=== PATIENT | female | born 1970 | race African-American/Black ===

== ENCOUNTER 2017-02-01 09:33 | Inpatient (IN) | payer MEDICARE, OTHER ==
--- NOTE | ~2017-02-01 | OP ---
Record Of Operation [facility] [address] [place]. [address] NAME: ALONZO HAMILTON : 66 STATUS : ADM IN PAT#: [id number] AGE: 46 ADM/REG DATE : 02/01/17 MR#: [id number] REPORT SERV DATE: 02/01/17 DICTATED BY: CINDY BURGESS JR. DATE: 02/01/17 REPORT STATUS : Draft TRANSCRIBED BY: MODL DATE: 02/01/17 DATE OF PROCEDURE: 02/01/2017 SURGEON: Cindy Burgess M.D. CUSTOMS APPRAISER: Yariel Smallwood. PROCEDURE: Excision of pilonidal disease with extensive sinus tracts and cyst formation along with partial closure of defect and wound VAC placement. PREOPERATIVE DIAGNOSIS: Pilonidal disease with extensive sinus tracts and cyst formation. POSTOPERATIVE DIAGNOSIS: Pilonidal disease with extensive sinus tracts and cyst formation. ANESTHESIA: General. INDICATIONS: The patient presented with progressive drainage from the pilonidal region. This appears to be sinus is consistent with extensive pilonidal disease, and excision is indicated. FINDINGS: The area was excised completely. The resulting defect measured 13.8 x 5 x 8 x 7. There was a tunnel at 5 o'clock. The tissue was submitted for pathology, and cultures were also taken. Wound VAC was placed. DESCRIPTION OF PROCEDURE: With adequate general anesthesia, the patient was placed in the prone position. The buttock area was prepped and draped sterilely. With a 10 blade incision made around the area of sinus tract, this was deepened down through the subcutaneous tissues. Complete excision of the skin and subcutaneous tissue excised, excision taken down to the underlying fascia. This was then extended to the patient's right side along the area where there was extensive involvement as well. Cultures were taken. The wound was irrigated with pulse lavage casting and pasting supervisor. Hemostasis was assured with electrocautery. Then, the wound was irrigated with pulse lavage. Then, the inferior limb was closed with mattress of 3-0 nylon. Wound VAC was placed with a white foam in the tunnel and black foam in the midportion. Occlusive dressing, and suction . The patient tolerated the procedure well and left the operating room in satisfactory condition. ESTIMATED BLOOD LOSS: 30 mL. DREW/PARRIS Cindy Burgess Jr., M.D. Record Of [address] [address] NAME: ALONZO HAMILTON : 66 STATUS : ADM IN PAT#: [id number] AGE: 46 ADM/REG DATE : 02/01/17 MR#: [id number] REPORT SERV DATE: 02/01/17 DICTATED BY: CINDY BURGESS JR. DATE: 02/01/17 REPORT STATUS : Draft TRANSCRIBED BY: PARRIS DATE: 02/01/17 / [id number] CC: Gabriela Jimenez Jr.
--- NOTE | ~2017-02-01 | DS ---
Discharge Summary [facility] [address] [place]. [address] NAME: ALONZO HAMILTON : 66 STATUS : DIS IN PAT#: [id number] AGE: 46 ADM/REG DATE : 02/02/17 MR#: [id number] REPORT SERV DATE: 02/13/17 DICTATED BY: CINDY BURGESS JR. DATE: 02/12/17 REPORT STATUS : Draft TRANSCRIBED BY: PARRIS DATE: 02/12/17 Data Collection from hospitalization DISCHARGE DIAGNOSES: 1. Pilonidal disease with extensive sinus tract and cyst formation. 2. Multiple sclerosis. 3. Neurogenic bladder. 4. Chronic obstructive pulmonary disease. 5. Former smoker. 6. Situs inversus. 7. Gastroesophageal reflux disease. 8. History of spinal meningitis. CONSULTATION: Dr. Lorenzo Mars. PROCEDURES PERFORMED: 1. Excision of pilonidal disease with extensive sinus tract cyst formation along with partial closure of the defect and wound VAC placement, 02/01/2017. 2. Modified barium swallow study, 02/03/2017. PATHOLOGY: Skin and subcutaneous tissue intergluteal region excision-pilonidal cyst/sinus with areas of marked acute inflammation. DISCHARGE MEDICATIONS: Parafon Forte 500 mg daily, Dantrium 100 mg twice a day, Colace 100 mg daily, Nexium 40 mg twice a day, Pepcid 40 mg at bedtime, ferrous sulfate 325 mg daily, Diflucan 100 mg twice a day, Lasix daily, CellCept 1 g twice a day, Naprosyn 500 mg every 12 hours, Ditropan 5 mg twice a day, Percocet 5/325 one to two tablets every five hours as needed, Klor-Con 10 mEq daily, Pravachol 20 mg at bedtime, Lyrica 225 mg daily, Zantac 300 mg at bedtime, Zoloft 100 mg at bedtime, Bactrim DS one tablet every 12 hours, albuterol twice a day as instructed, budesonide as instructed. CONDITION AT DISCHARGE: Stable. DISPOSITION: The patient was discharged home to be followed by home health care on a mechanical soft diet with activities as instructed. She would follow up at the [facility] [place], 02/11/2017. HOSPITAL COURSE: This is a 46-year-old female, who has pilonidal disease with extensive sinus tract and cyst formation. Treatment options were discussed and it was elected to proceed with surgical intervention. She was admitted to the hospital at this time for further evaluation and treatment. Upon admission, she was taken to the operating room, where she underwent the above-mentioned procedure. She tolerated this well and there were no complications. On postop day 1, wound VAC remained in place. Cultures were negative. A bedside swallow evaluation was performed. There were no overt signs or symptoms of aspiration. Aspiration precautions were in place. The patient was seen by Dr. Lorenzo Mars. The patient became a full admit. CBC and chemistry were within normal limits. H and H remained chronically low at 10.6 and 32.2. Discharge Summary [address] [address] NAME: ALONZO HAMILTON : 66 STATUS : DIS IN PAT#: [id number] AGE: 46 ADM/REG DATE : 02/02/17 MR#: [id number] REPORT SERV DATE: 02/13/17 DICTATED BY: CINDY BURGESS JR. DATE: 02/12/17 REPORT STATUS : Draft TRANSCRIBED BY: PARRIS DATE: 02/12/17 Chest x-ray showed asymmetric alveolar consolidation involving the lower left lung concerning for pneumonia and/or aspiration in the proper clinical setting. There was mild right basilar opacities, potentially mild atelectasis and dextrocardia. The patient has had a chronic cough for months with no overt aspiration noted by speech pathologist. Without any fever, elevated white count, or shortness of breath, it was doubtful that there was anything infectious going on. Modified barium swallow study was going to be performed. Aspiration precautions remained in place. She was encouraged to use incentive spirometry. She was placed on oxygen bronchodilator protocol and we continued her home medications. On the , a modified barium swallow study was performed. The patient did exhibit delayed swallow initiation and mildly reduced range of motion of the oral/pharyngeal muscles. Aspiration precautions remained in place. Over the next couple of days, she continued to progress satisfactorily. The wound VAC remained in place. Discharge planning was performed. Supportive care continued. Benitez catheter was in place. Oxybutynin continued. On 02/05/2017, her coughing had improved. She was afebrile. She was eating well. Discharge instructions were given. Due to her improved and stable condition, she was discharged home to be followed by home health care with the above-stated instructions. Information collected by: Kenia Schuster I submit the above information as my discharge summary. KANDACE/PARRIS Cindy Burgess Jr., M.D. / [id number] CC: Gabriela Jimenez Jr., M.D.
--- NOTE | ~2017-02-01 | CN ---
Consultation Report [facility] [address] [place] [place]. [address] NAME: ALONZO HAMILTON : 66 STATUS : ADM IN PAT#: [id number] AGE: 46 ADM/REG DATE : 02/02/17 MR#: [id number] REPORT SERV DATE: 02/02/17 DICTATED BY: KEM PLASCENCIA DATE: 02/02/17 REPORT STATUS : Draft TRANSCRIBED BY: PARRIS DATE: 02/02/17 CONSULT NOTE DATE OF CONSULTATION: 02/02/2017 PULMONOLOGISTS: Gurdeep Jaquez M.D. CONSULT COMING FROM: Dr. Duckworth. HISTORY OF PRESENT ILLNESS: This is a 46-year-old female, being consulted for aspiration and cough. The patient has a history of MS, neurogenic bladder with chronic suprapubic Benitez for about six years now. She was also diagnosed with COPD and has been following up with both Dr. Hammond and Dr. Jaquez. The patient has been having cough for months, and she was told that she probably has some recurrent aspiration. The patient has a pilonidal cyst with sinus tract formation and finally was admitted by Dr. Duckworth for excision. The patient tolerated the procedure well, and we are now called out to help out with this aspiration and cough. When I saw the patient, the patient was eating without any problems and already had a speech evaluation, which did not show any overt aspiration. The patient did not have any fever, chills, or shortness of breath. She has cough, mainly dry, but sometimes it is productive. She said that she is allergic to a lot of things, maybe some environmental stuff too, but she is not sure which one. She denied any other symptoms. There is no nausea or vomiting. She did not have any urinary changes or bowel changes. No near syncopal or syncopal episode. The. REVIEW OF SYSTEMS: Rest of the 14-point review of system is negative except as above. PAST MEDICAL HISTORY: Includes multiple sclerosis, being seen by Dr. Lund; neurogenic bladder with chronic suprapubic Benitez, the last time it was changed was last Wednesday; COPD; ex-smoker; situs inversus; possible chronic aspiration; questionable history of asthma; GERD. SOCIAL HISTORY: She does not smoke, drink, or use recreational drugs at present. FAMILY HISTORY: Positive for CAD and diabetes. ALLERGIES: INCLUDE FLAGYL, PENICILLIN, LEVAQUIN, GABAPENTIN. MEDICATIONS: Include Parafon, Dantrium, Colace, Nexium, iron, Diflucan, Lasix, CellCept, naproxen, Ditropan, Klor-Con, Pravachol, Lyrica, Zantac, Zoloft. PHYSICAL EXAMINATION: GENERAL: Obese, alert, oriented x3. Not in cardiopulmonary distress. VITAL SIGNS: Include a saturation of 97% on room air, blood pressure of 122/78, temperature Consultation Report [facility] [place] [id number] [place]. [address] NAME: ALONZO HAMILTON : 66 STATUS : ADM IN [facility]#: [id number] AGE: 46 ADM/REG DATE : 02/02/17 MR#: [id number] REPORT SERV DATE: 02/02/17 DICTATED BY: KEM PLASCENCIA DATE: 02/02/17 REPORT STATUS : Draft TRANSCRIBED BY: MODL DATE: 02/02/17 of 99.1, pulse rate of 105, respiration of 18. She has supple neck. No JVD or carotid bruits. No lymphadenopathy. Antimony conjunctivae. Anicteric sclerae. No pharyngeal erythema. She has good air entry. Some rhonchi on the bases. Regular rate and rhythm to tachycardia, but the heart is heard best on the right side of her chest. Positive bowel sounds. Soft, nontender. No masses. Fair pulses. No edema. NEURO: Nonlocalizing. LABORATORY DATA: Reveals chemistry within normal limits. CBC within normal limits. H and H are chronically low at 10.6 and 32.2 right now. Chest x-ray shows asymmetric alveolar consolidation involving the lower left lung concerning for pneumonia and/or aspiration in the proper clinical setting. Mild right basilar opacity, potentially mild atelectasis, dextrocardia. ASSESSMENT: 1. Status post excision of pilonidal disease. 2. Multiple sclerosis. 3. Neurogenic bladder with chronic suprapubic Benitez. 4. Chronic obstructive pulmonary disease. 5. Situs inversus. 6. Cough, rule out aspiration. PLAN: The patient has been having chronic cough for months with no overt aspiration noted by the speech pathologist. Without any fever. Elevated white count. Shortness of breath. I doubt if there is anything infectious going on. I agree with modified barium swallow per Speech. Aspiration precaution. Incentive spirometry. Place her on oxygen bronchodilator protocol and continue her home medications. Thank you for the consult. I will follow the patient with you. Of note, this could also be her reflux disease; however, if the modified barium swallow comes out good, and she continues to be stable, she could be followed up by her telecommunication equipment repairer on an outpatient basis to work this thing up. KARL/PARRIS Kem Plascencia M.D. / [id number] CC: Gabriela Jimenez Jr., M.D.
[~2017-02-01 09:33] MED LIST: ALBUTEROL INH; AMB10 PO; BACDS PO; BUDESONIDE INH; CELLCEPT IV; CELLCEPT5 PO; CHOLESTEROL MED; DANTRIUM100 MG OR; DANTRIUM100 MG PO; DANTRIUM50 MG OR; DITRO5 PO; DSS PO; ELESTAT0.05 % OPH; FERROUS SULF325 M1 PO; FLUCON1 PO; HYDROCORT12 EX; IRON325 MG PO; K-TABS10 MEQ PO; KLOR-CON 1010 MEQ PO; L20 PO; LYRICA225 MG PO; NAP500 PO; NEXIUM20 M1 PO; NEXIUM40 PO; PARAFON FORTE500 MG OR; PARAFON FORTE500 MG PO; PCET PO; PRAVAC PO; RANITIDINE300 MG PO; REG PO; RITUXAN; SOMATAB PO; VALTREX5 PO; ZANAFLEX2 MG PO; ZOL100 PO
[2017-02-01 10:27] LABS: BASOPHILS 0.2 %; BASOPHILS ABSOLUTE 0.02 10/3/uL (0.0-0.16); EOSINOPHILS ABSOLUTE 0.08 10/3/uL (0.0-0.53); HEMATOCRIT 35.9 % (36.0-48.0); HEMOGLOBIN 11.8 g/dL (12.0-16.0); IMMATURE GRANULOCYTES 0.7 %; IMMATURE GRANULOCYTES ABSOLUTE 0.06 10/3/uL (0.0-0.11); LYMPHOCYTES 15.1 %; LYMPHOCYTES ABSOLUTE 1.24 10/3/uL (0.67-4.30); MEAN CORPUS HGB CONC 32.9 g/dL (32.0-36.0); MEAN CORPUSCULAR HEMOGLOB 28.5 pg (26.0-34.0); MEAN CORPUSCULAR VOLUME 86.7 fL (80-100); MEAN PLATELET VOLUME 10.7 fL (9.2-13.0); MONOCYTES 5.5 %; MONOCYTES ABSOLUTE 0.45 10/3/uL (0.21-1.20); NEUTROPHILS 77.5 %; NEUTROPHILS ABSOLUTE 6.35 10/3/uL (2.02-8.40); PLATELET COUNT 225 10/3/uL (150-400); RBC DISTRIBUTION WIDTH 15.4 % (12.0-16.0); RED CELL COUNT 4.14 10/6/uL (4.0-5.6); WHITE BLOOD CELLS 8.2 10/3/uL (4.5-10.5)
[2017-02-01 10:40] LABS: BUN (BLOOD UREA NITROGEN) 7 MG/DL (6-23); CHLORIDE, SERUM 101 MMOL/L (96-112); CO2 (CARBON DIOXIDE) 27 MMOL/L (24-34); CREATININE 0.54 MG/DL (0.55-1.02); GFR AFRICAN AMERICAN 129 ML/MIN (>=60); GFR NON AFRICAN AMERICAN 112 ML/MIN (>=60); GLUCOSE, SERUM 96 MG/DL (60-99); POTASSIUM, SERUM 3.9 MMOL/L (3.5-5.3); SODIUM, SERUM 140 MMOL/L (135-148)
[2017-02-02 05:39] LABS: BASOPHILS 0.1 %; BASOPHILS ABSOLUTE 0.01 10/3/uL (0.0-0.16); EOSINOPHILS 0.4 %; EOSINOPHILS ABSOLUTE 0.04 10/3/uL (0.0-0.53); HEMATOCRIT 32.2 % (36.0-48.0); HEMOGLOBIN 10.6 g/dL (12.0-16.0); IMMATURE GRANULOCYTES 0.6 %; IMMATURE GRANULOCYTES ABSOLUTE 0.05 10/3/uL (0.0-0.11); LYMPHOCYTES 9.9 %; LYMPHOCYTES ABSOLUTE 0.89 10/3/uL (0.67-4.30); MEAN CORPUS HGB CONC 32.9 g/dL (32.0-36.0); MEAN CORPUSCULAR HEMOGLOB 28.4 pg (26.0-34.0); MEAN CORPUSCULAR VOLUME 86.3 fL (80-100); MEAN PLATELET VOLUME 10.6 fL (9.2-13.0); MONOCYTES 4.3 %; MONOCYTES ABSOLUTE 0.39 10/3/uL (0.21-1.20); NEUTROPHILS 84.7 %; NEUTROPHILS ABSOLUTE 7.61 10/3/uL (2.02-8.40); PLATELET COUNT 216 10/3/uL (150-400); RBC DISTRIBUTION WIDTH 15.2 % (12.0-16.0); RED CELL COUNT 3.73 10/6/uL (4.0-5.6)
[2017-02-02 05:40] LABS: MANUAL DIFF NO %
[2017-02-02 05:57] LABS: A/G RATIO 0.9 (0.7-1.9); ALBUMIN 2.9 G/DL (3.5-5.0); BUN (BLOOD UREA NITROGEN) 5 MG/DL (6-23); CALCIUM, SERUM 8.7 MG/DL (8.5-10.4); CHLORIDE, SERUM 103 MMOL/L (96-112); CO2 (CARBON DIOXIDE) 25 MMOL/L (24-34); CREATININE 0.59 MG/DL (0.55-1.02); GFR AFRICAN AMERICAN 126 ML/MIN (>=60); GFR NON AFRICAN AMERICAN 108 ML/MIN (>=60); GLOBULIN 3.4 G/DL (2.5-4.1); GLUCOSE, SERUM 106 MG/DL (60-99); POTASSIUM, SERUM 3.5 MMOL/L (3.5-5.3); PREALBUMIN 20.8 MG/DL (17.0-43.0); SGOT(AST) 10 U/L (5-40); SGPT(ALT) 12 U/L (5-65); SODIUM, SERUM 139 MMOL/L (135-148); TOTAL BILIRUBIN 0.3 MG/DL (0-1.2); TOTAL PROTEIN 6.3 G/DL (6.0-8.5)
[2017-02-02 06:03] LABS: ALKALINE PHOSPHATASE 66 U/L (45-117)
[2017-02-03 05:59] LABS: BASOPHILS 0.2 %; BASOPHILS ABSOLUTE 0.01 10/3/uL (0.0-0.16); EOSINOPHILS 1.3 %; EOSINOPHILS ABSOLUTE 0.08 10/3/uL (0.0-0.53); HEMATOCRIT 32.8 % (36.0-48.0); HEMOGLOBIN 10.4 g/dL (12.0-16.0); IMMATURE GRANULOCYTES 1.3 %; IMMATURE GRANULOCYTES ABSOLUTE 0.08 10/3/uL (0.0-0.11); LYMPHOCYTES 15.1 %; LYMPHOCYTES ABSOLUTE 0.95 10/3/uL (0.67-4.30); MEAN CORPUS HGB CONC 31.7 g/dL (32.0-36.0); MEAN CORPUSCULAR HEMOGLOB 27.4 pg (26.0-34.0); MEAN CORPUSCULAR VOLUME 86.3 fL (80-100); MEAN PLATELET VOLUME 10.4 fL (9.2-13.0); MONOCYTES 7.3 %; MONOCYTES ABSOLUTE 0.46 10/3/uL (0.21-1.20); NEUTROPHILS 74.8 %; NEUTROPHILS ABSOLUTE 4.73 10/3/uL (2.02-8.40); PLATELET COUNT 202 10/3/uL (150-400); RBC DISTRIBUTION WIDTH 15.5 % (12.0-16.0); WHITE BLOOD CELLS 6.3 10/3/uL (4.5-10.5)
[2017-02-03 06:03] LABS: MANUAL DIFF NO %
[2017-02-03 06:19] LABS: BUN (BLOOD UREA NITROGEN) 4 MG/DL (6-23); CHLORIDE, SERUM 107 MMOL/L (96-112); CO2 (CARBON DIOXIDE) 25 MMOL/L (24-34); CREATININE 0.54 MG/DL (0.55-1.02); GFR AFRICAN AMERICAN 129 ML/MIN (>=60); GFR NON AFRICAN AMERICAN 112 ML/MIN (>=60); GLUCOSE, SERUM 116 MG/DL (60-99); SODIUM, SERUM 141 MMOL/L (135-148)
[2017-02-05] MEDS ORDERED: PEP20 PO (10:58)
[2017-02-05] MEDS ORDERED: BACTRIM DS1 TAB PO (10:59)
[2017-02-05] MEDS ORDERED: PCET PO (10:59)
[2017-06-29] MEDS ORDERED: OXYCON20 PO (13:36)
[2017-06-29] MEDS ORDERED: MIRALAX POWDER1 PKT PO (13:37)
[2017-06-29] MEDS ORDERED: DITRO5 PO (13:38)
[2017-06-29] MEDS ORDERED: METHOC500B PO (13:39)
[2017-06-29] MEDS ORDERED: LYRICA225 MG PO (13:41)
[2017-06-29] MEDS ORDERED: LIPITOR10 PO (13:44)
[2017-06-29] MEDS ORDERED: MULTIVITAMI1 PO (13:47)
[2017-06-29] MEDS ORDERED: MELATONIN5 M1 PO (13:49)
[2017-06-29] MEDS ORDERED: ZYRTEC ALLGY10 MG PO (13:50)
[2017-06-29] MEDS ORDERED: BIST PO (13:53)
[2017-06-29] MEDS ORDERED: PERCOCET 10/3251 TAB PO (13:55)
[2017-06-29] MEDS ORDERED: PROSTAT AWC PO (14:36)
== END 2017-02-05 19:35 | disposition home health service (06) | DRG 571 ==
LOC: SDC 09:33 → 5SO 19:57
PROVIDERS: Specialist
PROC: 0JB90ZZ Excision of Buttock Subcutaneous Tissue and Fascia, Open Approach (ICD-10-PCS; principal; 2017-02-01 13:00)
DX: L05.01 Pilonidal cyst with abscess (principal); Q89.3 Situs inversus; G35 Multiple sclerosis; N31.8 Other neuromuscular dysfunction of bladder; Z87.01 Personal history of pneumonia (recurrent); K21.9 Gastro-esophageal reflux disease without esophagitis; G89.4 Chronic pain syndrome; J44.9 Chronic obstructive pulmonary disease, unspecified; M19.90 Unspecified osteoarthritis, unspecified site; D50.9 Iron deficiency anemia, unspecified; R05 Cough; Z82.49 Family history of ischemic heart disease and other diseases of the circulatory system; Z82.3 Family history of stroke; Z90.49 Acquired absence of other specified parts of digestive tract; Z98.890 Other specified postprocedural states; Z88.0 Allergy status to penicillin; Z88.1 Allergy status to other antibiotic agents; Z79.899 Other long term (current) drug therapy; Z87.891 Personal history of nicotine dependence; Z86.711 Personal history of pulmonary embolism; Z83.3 Family history of diabetes mellitus; B96.4 Proteus (mirabilis) (morganii) as the cause of diseases classified elsewhere; B95.62 Methicillin resistant Staphylococcus aureus infection as the cause of diseases classified elsewhere
CPT/HCPCS: 71010; 74230; 80048; 80053; 83735; 84134; 85025; 87015; 87070; 87075; 87077; 87102; 87116; 87186; 87205; 88304; 92610-GN; 92611-GN; 93005; 94640; 94660; A9270-GY; G8996-CI-GN; G8996-CJ-GN; G8997-CI-GN; G8997-CJ-GN; G8998-CI-GN; G8998-CJ-GN; J0690; J2710; J3010

== ENCOUNTER 2017-03-20 04:52 | Emergency (ER) | payer MEDICARE, OTHER ==
[2017-03-20 02:44] LABS: BASOPHILS 0.2 %; BASOPHILS ABSOLUTE 0.01 10/3/uL (0.0-0.16); EOSINOPHILS ABSOLUTE 0.13 10/3/uL (0.0-0.53); ER CBC TAT 0 Hrs 05 Mins; HEMATOCRIT 31.4 % (36.0-48.0); HEMOGLOBIN 9.9 g/dL (12.0-16.0); IMMATURE GRANULOCYTES 0.6 %; IMMATURE GRANULOCYTES ABSOLUTE 0.04 10/3/uL (0.0-0.11); LYMPHOCYTES 14.2 %; LYMPHOCYTES ABSOLUTE 0.93 10/3/uL (0.67-4.30); MANUAL DIFF NO %; MEAN CORPUS HGB CONC 31.5 g/dL (32.0-36.0); MEAN CORPUSCULAR HEMOGLOB 26.5 pg (26.0-34.0); MEAN CORPUSCULAR VOLUME 84.2 fL (80-100); MONOCYTES 6.1 %; NEUTROPHILS 76.9 %; NEUTROPHILS ABSOLUTE 5.03 10/3/uL (2.02-8.40); PLATELET COUNT 229 10/3/uL (150-400); RBC DISTRIBUTION WIDTH 15.7 % (12.0-16.0); RED CELL COUNT 3.73 10/6/uL (4.0-5.6); WHITE BLOOD CELLS 6.5 10/3/uL (4.5-10.5)
[2017-03-20 02:56] LABS: CALCIUM, SERUM 9.4 MG/DL (8.5-10.4); CHLORIDE, SERUM 102 MMOL/L (96-112); CO2 (CARBON DIOXIDE) 29 MMOL/L (24-34); CREATININE 0.49 MG/DL (0.55-1.02); GFR AFRICAN AMERICAN 134 ML/MIN (>=60); GFR NON AFRICAN AMERICAN 115 ML/MIN (>=60); POTASSIUM, SERUM 3.5 MMOL/L (3.5-5.3); SODIUM, SERUM 141 MMOL/L (135-148)
[2017-03-20 02:57] LABS: BUN (BLOOD UREA NITROGEN) 6 MG/DL (6-23); GLUCOSE, SERUM 107 MG/DL (60-99)
[2017-03-20 03:27] LABS: ASCORBIC ACID (UR NOT ORDER) NEG (NEG); BILIRUBIN, URINE NEGATIVE (NEG); ER URINALYSIS TAT 0 Hrs 00 Mins; KETONE, URINE NEGATIVE (NEG); LEUKOCYTE ESTERASE(NOT OR LARGE (NEG); WBC (NOT ORDERED) (RFLEX) 66 (0-5)
[2017-03-20 03:29] LABS: NITRITE (URINE) NEG (NEG)
[~2017-03-20 04:52] MED LIST changes: +BACTRIM DS1 TAB PO; +PEP20 PO
[2017-06-29] MEDS ORDERED: OXYCON20 PO (13:36)
[2017-06-29] MEDS ORDERED: MIRALAX POWDER1 PKT PO (13:37)
[2017-06-29] MEDS ORDERED: DITRO5 PO (13:38)
[2017-06-29] MEDS ORDERED: METHOC500B PO (13:39)
[2017-06-29] MEDS ORDERED: LYRICA225 MG PO (13:41)
[2017-06-29] MEDS ORDERED: LIPITOR10 PO (13:44)
[2017-06-29] MEDS ORDERED: MULTIVITAMI1 PO (13:47)
[2017-06-29] MEDS ORDERED: MELATONIN5 M1 PO (13:49)
[2017-06-29] MEDS ORDERED: ZYRTEC ALLGY10 MG PO (13:50)
[2017-06-29] MEDS ORDERED: BIST PO (13:53)
[2017-06-29] MEDS ORDERED: PERCOCET 10/3251 TAB PO (13:55)
[2017-06-29] MEDS ORDERED: PROSTAT AWC PO (14:36)
== END 2017-03-20 05:38 | disposition home or self-care (01) ==
LOC: ER 04:52
PROVIDERS: Specialist
DX: N39.0 Urinary tract infection, site not specified (principal); G35 Multiple sclerosis; J44.9 Chronic obstructive pulmonary disease, unspecified; K21.9 Gastro-esophageal reflux disease without esophagitis; Z93.59 Other cystostomy status; Z87.891 Personal history of nicotine dependence; Z90.710 Acquired absence of both cervix and uterus; Z88.0 Allergy status to penicillin; Z88.1 Allergy status to other antibiotic agents; Z88.8 Allergy status to other drugs, medicaments and biological substances; Z79.899 Other long term (current) drug therapy
CPT/HCPCS: 80048; 81001; 85025; 87077; 87086; 87186; 96372; 99284; J0692

== ENCOUNTER 2017-04-05 16:33 | Inpatient (IN) | payer MEDICARE, OTHER ==
--- NOTE | ~2017-04-05 | IDS ---
Interim Discharge Summary [facility] [address] [place]. [address] NAME: ALONZO HAMILTON : 66 STATUS : ADM IN PAT#: [id number] AGE: 47 ADM/REG DATE : 04/05/17 MR#: [id number] REPORT SERV DATE: 04/12/17 DICTATED BY: CHAN RUIZ DATE: 04/12/17 REPORT STATUS : Draft TRANSCRIBED BY: MODIsabella DATE: 04/12/17 ADMISSION DATE: 04/05/2017 DISCHARGE DATE: REASON FOR ADMISSION: Pain and wound, concern for osteomyelitis. HISTORY OF PRESENT ILLNESS: Please refer to Dr. Sanders's history and physical dated 04/05 for complete details regarding the patient's admission. In brief, the patient was admitted to the Hospitalist Service for concern for urinary tract infection and wound infection. HOSPITAL COURSE: Several issues were addressed. The patient is a well-known patient of Dr. Duckworth who has been treating her pilonidal cyst. 1. Sacral osteomyelitis. The patient is well known to Dr. Duckworth. She presented with a sacral ulcer that was concerning for osteomyelitis. Dr. Duckworth was consulted. He performed a bedside debridement on 04/08/2017. Cultures came back as positive for Proteus and Strep bovis. Infectious Disease was consulted. Dr. Luna had recommended at that time continuing Azactam, that was prior to known culture results. Dr. Luna continues to follow the patient, and we are awaiting final recommendations for antibiotics. 2. NMO, not multiple sclerosis, with flare. The patient follows closely with Dr. Lund. The patient states that she has multiple sclerosis, but she actually has NMO. This was verified by Dr. Lund. She noted that she had been becoming weaker prior to admission. Neurology was consulted. Recommended doing three days of IV Solu-Medrol, which she has completed, to help with her flare of NMO. Neurology recommended getting an MRI, which did not show any acute process. 3. Neurogenic bladder with a closing suprapubic hole. The patient is closely followed by Dr. Shahid. Dr. Shahid is waiting for her suprapubic hole to close up on its own, and the patient had a Benitez catheter, it had had leaked, and was replaced. She continues to need a chronic Benitez. 4. 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 There was concern about a urinary tract infection. Urine culture was obtained, which showed Pseudomonas was likely colonization and she has had previous cultures. Dr. Luna did not feel that she had an active infection, and therefore, her antibiotics were changed. 5. Acute blood loss anemia. She started developing some decreasing hemoglobins, likely secondary to her osteomyelitis. She did not receive any blood transfusions. Her hemoglobin has been stable. 6. Situs inversus. 7. Morbid obesity. 8. Blindness. DISPOSITION: The patient will likely need to be placed in rehab facility according to Physical Therapy. We are awaiting final recommendations from Dr. Luna regarding whether or not the patient will need IV antibiotics or can be discharged with oral antibiotics. Hopefully, the decision will be made today on 04/12/2017, with likely placement in rehab for this patient. Interim Discharge Summary [address] [address] NAME: ALONZO HAMILTON : 66 STATUS : ADM IN [facility]#: [id number] AGE: 47 ADM/REG DATE : 04/05/17 MR#: [id number] REPORT SERV DATE: 04/12/17 DICTATED BY: CHAN RUIZ DATE: 04/12/17 REPORT STATUS : Draft TRANSCRIBED BY: PARRIS DATE: 04/12/17 INTERIM DIAGNOSES: 1. 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 Duckworth. 2. Neuromyelitis optica with flare, not muscular sclerosis as the patient keeps reporting. 3. Neurogenic bladder with closing suprapubic hole with a chronic Benitez catheter. 4. Acute blood loss anemia not requiring any transfusions. 5. Situs inversus. 6. Morbid obesity. PROCEDURES: Include consultation with Dr. Duckworth, Dr. Luna, bedside debridement, Neurology consult, MRI of the brain, MRI of the pelvis, MRI of the cervical spine, chest x-ray, swallow evaluation. Final decision per Dr. Larson who will assume care of this patient on 04/13/2017. KASHIF/PARRIS Chan Ruiz MD / [id number] CC: MD Jeff Hector MD
--- NOTE | ~2017-04-05 | DS ---
Discharge Summary [facility] [address] [place]. [address] NAME: ALONZO HAMILTON : 66 STATUS : DIS IN PAT#: [id number] AGE: 47 ADM/REG DATE : 04/05/17 MR#: [id number] REPORT SERV DATE: 04/13/17 DICTATED BY: CHAN RUIZ DATE: 04/12/17 REPORT STATUS : Draft TRANSCRIBED BY: MODL DATE: 04/12/17 ADMISSION DATE: 04/05/2017 DISCHARGE DATE: 04/12/2017 REASON FOR ADMISSION: Pain and wound, concern for osteomyelitis. HISTORY OF PRESENT ILLNESS: Please refer to Dr. Sanders's history and physical dated 04/05 for complete details regarding the patient's admission. In brief, the patient was admitted to the Hospitalist Service for concern for urinary tract infection and wound infection. HOSPITAL COURSE: Several issues were addressed. The patient is a well-known patient of Dr. Duckworth who has been treating her pilonidal cyst. 1. Sacral osteomyelitis. The patient is well known to Dr. Duckworth. She presented with a sacral ulcer that was concerning for osteomyelitis. Dr. Duckworth was consulted. He performed a bedside debridement on 04/08/2017. Cultures came back as positive for Proteus and Strep bovis. Infectious Disease was consulted. Dr. Luna had recommended at that time continuing Azactam, that was prior to known culture results. Dr. Luna continues to follow the patient, and we are awaiting final recommendations for antibiotics. 2. NMO, not multiple sclerosis, with flare. The patient follows closely with Dr. Lund. The patient states that she has multiple sclerosis, but she actually has NMO. This was verified by Dr. Lund. She noted that she had been becoming weaker prior to admission. Neurology was consulted. Recommended doing three days of IV Solu-Medrol, which she has completed, to help with her flare of NMO. Neurology recommended getting an MRI, which did not show any acute process. 3. Neurogenic bladder with a closing suprapubic hole. The patient is closely followed by Dr. Shahid. Dr. Shahid is waiting for her suprapubic hole to close up on its own, and the patient had a Benitez catheter, it had had leaked, and was replaced. She continues to need a chronic Benitez. 4. 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 There was concern about a urinary tract infection. Urine culture was obtained, which showed Pseudomonas was likely colonization and she has had previous cultures. Dr. Luna did not feel that she had an active infection, and therefore, her antibiotics were changed. 5. Acute blood loss anemia. She started developing some decreasing hemoglobins, likely secondary to her osteomyelitis. She did not receive any blood transfusions. Her hemoglobin has been stable. 6. Situs inversus. 7. Morbid obesity. 8. Blindness. DISPOSITION: The patient will likely need to be placed in rehab facility according to Physical Therapy. We are awaiting final recommendations from Dr. Luna regarding whether or not the patient will need IV antibiotics or can be discharged with oral antibiotics. Hopefully, the decision will be made today on 04/12/2017, with likely placement in rehab for this patient. Discharge Summary [place] [id number] [facility]. [address] NAME: ALONZO HAMILTON : 66 STATUS : DIS IN PAT#: [id number] AGE: 47 ADM/REG DATE : 04/05/17 MR#: [id number] REPORT SERV DATE: 04/13/17 DICTATED BY: CHAN RUIZ DATE: 04/12/17 REPORT STATUS : Draft TRANSCRIBED BY: PARRIS DATE: 04/12/17 INTERIM DIAGNOSES: 1. 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 Duckworth. 2. Neuromyelitis optica with flare, not muscular sclerosis as the patient keeps reporting. 3. Neurogenic bladder with closing suprapubic hole with a chronic Benitez catheter. 4. Acute blood loss anemia not requiring any transfusions. 5. Situs inversus. 6. Morbid obesity. PROCEDURES: Include consultation with Dr. Duckworth, Dr. Luna, bedside debridement, Neurology consult, MRI of the brain, MRI of the pelvis, MRI of the cervical spine, chest x-ray, swallow evaluation. Final decision per Dr. Larson who will assume care of this patient on 04/13/2017. ADDENDUM: The patient may likely be discharged to [facility] today for IV antibiotics and rehab and wound care. DISCHARGE MEDICATIONS: Include Parafon 500 mg twice a day, dantrolene 100 mg twice a day, Colace 100 mg twice a day, vitamin D 50,000 units every , iron sulfate 325 mg three times a day, Lasix 20 mg daily, CellCept 1000 mg twice a day, Ditropan 5 mg twice a day, Protonix 40 mg daily, pravastatin 20 mg at bedtime, Lyrica 225 mg twice a day, Lyrica 50 mg twice a day, Zoloft 100 mg daily, Valtrex 500 mg once a day, Percocet p.r.n. pain, Claritin, ranitidine, Ambien 10 mg as needed for bedtime, Klor-Con 10 mEq once a day, and possibly Infectious Disease to address any IV antibiotics. The patient may be discharged to [facility] for IV antibiotics and wound care. PROCEDURES: Include consultation with Dr. Duckworth and Dr. Luna, bedside debridement, consultation with Neurology, MRIs. This is Dr. Chan Ruiz spending our spending over 30 minutes discharge planning and coordination of care on Ms. Hamilton. DICTATED BY: MD KASHIF Hector/PARRIS Chan uRiz MD / [id number] CC: Chan Ruiz MD Discharge Summary [address] [address] NAME: ALONZO HAMILTON : 66 STATUS : DIS IN PAT#: [id number] AGE: 47 ADM/REG DATE : 04/05/17 MR#: [id number] REPORT SERV DATE: 04/13/17 DICTATED BY: CHAN RUIZ DATE: 04/12/17 REPORT STATUS : Draft TRANSCRIBED BY: PARRIS DATE: 04/12/17 Gabriela Ewing Jr., M.D. Woodrow Luna M.D.
--- NOTE | ~2017-04-05 | CN ---
Consultation Report [facility] [address] [place]. [address] NAME: ALONZO HAMILTON : 66 STATUS : ADM IN PAT#: [id number] AGE: 46 ADM/REG DATE : 04/05/17 MR#: [id number] REPORT SERV DATE: 04/06/17 DICTATED BY: WOODROW MEJIA DATE: 04/06/17 REPORT STATUS : Draft TRANSCRIBED BY: MODIsabella DATE: 04/06/17 INFECTIOUS DISEASE CONSULTATION DATE OF CONSULTATION: REASON FOR CONSULT: Fever in a patient with antibiotic allergies. HISTORY OF PRESENT ILLNESS: A 46-year-old black lady with history of multiple sclerosis on treatment with CellCept, blindness, situs inversus, chronic urinary catheter, who was brought to the hospital for pain at the sacral area wound, so she has multiple sclerosis and I am not sure whether she is bedridden. On 02/01, she had a surgical excision for a pilonidal cyst with long tracts by Dr. Segun Duckworth. It appears that since then she has had a wound followed by Dr. Segun Duckworth. Also noticed that there were multiple positive urine cultures on 03/14, 01/06, 01/18, all for Pseudomonas. She states she came to the hospital because of relentless pain at this wound that was like a burning aching sensation. She reports no fever at home, although she did have a temperature of 101 in the emergency room. She had no nausea vomiting, no diarrhea or constipation. No shortness of breath. No other wounds. She states that she used to have a suprapubic catheter, but for the last month or so she has a Benitez catheter. This was changed just two days ago. In the emergency room, lab work showed a procalcitonin of 0.13, lactic acid 0.9, creatinine of 0.5, WBC of 7, hemoglobin 8.4. Chest x-ray, no acute disease. Urinalysis from the Benitez catheter with 35 white blood cells, rare bacteria. She has a large wound over the sacral and coccyx area with some necrotic tissue in its depth. She was seen by Dr. Segun Duckworth today, who ordered an MRI of the pelvis. There is no wound culture done. The patient has been afebrile here in the hospital. Today, lab work shows a WBC of 6, potassium of 3.3, hemoglobin of 7.2. ID consult because of positive urine culture and the patient reports antibiotic allergies. PAST MEDICAL HISTORY: As I mentioned plus she states that she has both asthma and COPD. She has situs inversus. She reports no hardware in her body. SOCIAL HISTORY: She lives with family. FAMILY HISTORY: Heart disease and diabetes. MEDICATIONS ON ADMISSION: Chlorzoxazone, dantrolene, docusate, vitamin D, iron, Lasix, Claritin as needed, CellCept, oxybutynin, Percocet as needed, Protonix, potassium, pravastatin, Lyrica, Zantac, Zoloft, Valtrex 500 mg p.o. once a day, and Ambien as needed. ALLERGIES: SHE STATES THAT SHE HAD SOME KIND OF REACTION TO PENICILLIN WHEN SHE WAS A CHILD, BUT SHE CANNOT REMEMBER. FLAGYL CAUSED A RASH. SHE THINKS SHE HAD A REACTION TO LEVOFLOXACIN, BUT SHE DOES NOT KNOW WHAT HAPPENED SHE STATES SHE WAS VERY SICK AT THAT TIME. PHYSICAL EXAMINATION: GENERAL: On exam, she is alert, awake, obese, not in distress. Consultation Report [place] [id number] [place]. [address] NAME: ALONZO HAMILTON : 66 STATUS : ADM IN [facility]#: [id number] AGE: 46 ADM/REG DATE : 04/05/17 MR#: [id number] REPORT SERV DATE: 04/06/17 DICTATED BY: WOODROW MEJIA DATE: 04/06/17 REPORT STATUS : Draft TRANSCRIBED BY: PARRIS DATE: 04/06/17 HEART: Distant sounds. Rhythm seems regular. LUNGS: Seem clear to auscultation. No wheezes, rhonchi, or rales. ABDOMEN: Obese with some distention. Positive bowel sounds. Nontender to palpation. Benitez catheter in sacral large deep wound with some area of tissue necrosis in its depths. EXTREMITIES: Feet without open wounds. HEENT: Sclerae seem white. ASSESSMENT/PLAN: 1. The patient had fever in the emergency room. She did not check her temperature at home, but no subjective fever. 2. Large sacral wound with area of tissue necrosis. 3. Multiple sclerosis with blindness, possible paraplegia. She is on CellCept. 4. 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 I am not convinced she has a urinary tract infection. Benitez was changed two days ago. There is some mild pyuria, but no symptoms of UTI. Dr. Segun Duckworth ordered an MRI of the pelvis to look for any bone involvement. I do not know if he will perform any surgical debridement, but if that is done, I prefer obtaining some deep tissue cultures before antibiotics. For now, I will hold the vancomycin and continue the aztreonam. The patient is unsure about penicillin reaction as a child. She agreed with penicillin allergy testing. I discussed with Dr. Ruiz. PC/MODL Woodrow Mejia M.D. / [id number] CC: MD Jeff Hector M.D.
--- NOTE | ~2017-04-05 | CN ---
Consultation Report [facility] [address] [place]. [address] NAME: ALONZO HAMILTON : 66 STATUS : ADM IN PAT#: [id number] AGE: 46 ADM/REG DATE : 04/05/17 MR#: [id number] REPORT SERV DATE: 04/06/17 DICTATED BY: ADWOA DALEY DATE: 04/06/17 REPORT STATUS : Draft TRANSCRIBED BY: MODL DATE: 04/06/17 NEUROLOGY CONSULTATION DATE OF CONSULTATION: 04/06/2017 REASON FOR CONSULTATION: MS. NEUROLOGIST: Chase Lund M.D., PhD. HOSPITALIST: Jean Ruiz MD HISTORY OF PRESENT ILLNESS: The patient is a 46-year-old female who has a longstanding history of multiple sclerosis. She sees Dr. Chase Lund on an outpatient basis. She states that she takes CellCept for her MS and takes dantrolene for her spasms. She has not seen Dr. Lund in quite a while because she has been dealing with her pilonidal cyst and infection. She mentions that she had a pilonidal cyst removal by Dr. Duckworth back in January. She went home after her cyst removal, but a home health nurse sent her to [place] because she was not doing well. She then went to [facility] for rehab and then back home again. She stated that she came into the hospital because she started to have bilateral leg pain, which felt like "a toothache." She also experienced numbness and weakness. She is currently on Lyrica 225 mg twice a day for her pain, but this is not controlling her discomfort. She feels like she may be having an MS exacerbation. When asked about imaging, she stated that it has been a long time since she has had an MRI of her brain and C-spine. PAST MEDICAL HISTORY: Situs inversus totalis, multiple sclerosis, COPD, asthma, GERD, chronic aspiration, anemia, pilonidal cyst, suprapubic catheter placement for neurogenic bladder, frequent UTIs, depression, anxiety, herpes, and history of meningitis. PAST SURGICAL HISTORY: Suprapubic catheter insertion and pilonidal cyst removal. HOME MEDICATION LIST: Includes Parafon Forte, dantrolene 100 mg b.i.d., Colace 100 mg b.i.d., vitamin D 50,000 units weekly, ferrous sulfate 325 mg t.i.d., Lasix 20 mg daily, Claritin 10 mg daily, CellCept 1000 mg b.i.d., Ditropan 5 mg b.i.d., Percocet 5/325 mg q.6 hours p.r.n., Protonix 40 mg daily, potassium chloride 10 mEq daily, Pravachol 20 mg at bedtime, Lyrica 225 mg b.i.d., Zantac 300 mg at bedtime, Zoloft 100 mg daily, Valtrex 500 mg daily, and Ambien 10 mg at bedtime. ALLERGIES: FLAGYL, PENICILLIN, MACRODANTIN, NORFLOXACIN, LEVOFLOXACIN, AND NEURONTIN. SOCIAL HISTORY: The patient is single. She lives with a boyfriend. She has no kids. She does not work. She is on disability. She does not smoke, drink alcohol, or use illicits. Consultation Report [address] [address] NAME: ALONZO HAMILTON : 66 STATUS : ADM IN [facility]#: [id number] AGE: 46 ADM/REG DATE : 04/05/17 MR#: [id number] REPORT SERV DATE: 04/06/17 DICTATED BY: ADWOA DALEY DATE: 04/06/17 REPORT STATUS : Draft TRANSCRIBED BY: PARRIS DATE: 04/06/17 FAMILY HISTORY: The patient's mother recently from an [place]. Her father is alive, he is 70 years old and healthy. She has two healthy sisters. REVIEW OF SYSTEMS: Please refer to HPI. PHYSICAL EXAMINATION: GENERAL: The patient is a 46-year-old female who stands 5 feet 2 inches tall and weighs 219 pounds. VITAL SIGNS: She is febrile with a temperature of 99.7 degrees, heart rate 105, respiratory rate 18, O2 saturations on room air 97%, blood pressure 105/64. NEURO: The patient is alert, she is oriented x4, pleasant, communicates appropriately. Pupils are 3 mm. PERRLA. Funduscopic exam reveals a normal disc-to-cup ratio. No nicking, hemorrhaging, papillary edema. Positive red reflex bilaterally. Vision in the right eye is light perception only. Vision out of the left eye, hand motion only at 3 feet. No other cranial nerve deficits. She can move all extremities x4. Strength in the upper extremities is a 4/5. Upper DTRs are 2+ bilaterally. No reported sensory deficits. In the lower extremities, strength is 3/5 bilaterally. Patellar reflexes are 2+ bilaterally. The patient has downgoing toes. There is no spasm, no clonus. The patient has diminished vibratory sense from the toes to the knee, diminished temperature sensation from the toes to above the ankle, diminished light touch from the toes to above the ankle, but position sense is intact. The patient is unable to get out of the bed at this point, she is a total assist. She does use a walker at home. NECK: No carotid bruits. CARDIAC: Regular rate and rhythm. PMI is on the right side of the chest. LUNGS: Clear. No cough. LABORATORY DATA: CBC shows H and H of 7.2 and 23.9. BMP shows a potassium of 3.2. Urine cultures are positive for gram-negative organism. ASSESSMENT/PLAN: 1. Probable multiple sclerosis exacerbation from infectious process. At this point, the patient will undergo an MRI of the brain and C-spine with and without gadolinium. Dr. Lund will be contacted concerning the patient's multiple sclerosis therapy and also plan for hospitalization. PT and OT Therapy will be consulted for evaluation and treatment. The patient's Lyrica dose will be increased to 250 mg b.i.d. She will be started on IV steroids, Solu-Medrol 500 mg IV b.i.d. x3 days. 2. Situs inversus totalis. 3. Urinary tract infection, most likely chronic in nature. The patient does have a neurogenic bladder and suprapubic catheter. 4. Pilonidal cyst removal and possible ongoing infection. This will be managed per hospitalist team. Thank you again for including us in consultation. We will follow with you. Consultation Report [address] [place] [address] NAME: ALONZO HAMILTON : 66 STATUS : ADM IN [facility]#: [id number] AGE: 46 ADM/REG DATE : 04/05/17 MR#: [id number] REPORT SERV DATE: 04/06/17 DICTATED BY: ADWOA DALEY DATE: 04/06/17 REPORT STATUS : Draft TRANSCRIBED BY: PARRIS DATE: 04/06/17 MARCOS/PARRIS Adwoa Daley DNP, [facility] / [id number] CC: MD Jeff Hector M.D. Matthew Kodsi, M.D., PhD.
--- NOTE | ~2017-04-05 | CN ---
Consultation Report [facility] [address] [place]. [address] NAME: ALONZO HAMILTON : 66 STATUS : ADM IN PAT#: [id number] AGE: 46 ADM/REG DATE : 04/05/17 MR#: [id number] REPORT SERV DATE: 04/06/17 DICTATED BY: ADWOA DALEY DATE: 04/06/17 REPORT STATUS : Draft TRANSCRIBED BY: MODL DATE: 04/06/17 DATE OF CONSULTATION: 04/06/2017 ADDENDUM Addendum to Neurology Consultation. After speaking with Dr. Lund, it was clarified that the patient has been diagnosed with neuromyelitis optica (NMO). She does not have the diagnosis of multiple sclerosis. She is being treated with CellCept. However since she is having an exacerbation with worsening vision and leg pain, she will be treated with 3 days of IV Solu-Medrol. MARCOS/PARRIS Adwoa Daley DNP, ACNP-BC / [id number] CC: MD Jeff Hector M.D. Chase Lund M.D., PhD.
--- NOTE | ~2017-04-05 | HP ---
History And Physical [place] [id number] [place]. [address] NAME: ALONZO HAMILTON : 66 STATUS : ADM IN [facility]#: [id number] AGE: 46 ADM/REG DATE : 04/05/17 MR#: [id number] REPORT SERV DATE: 04/06/17 DICTATED BY: NIMCO REBOLLAR DATE: 04/06/17 REPORT STATUS : Draft TRANSCRIBED BY: MODIsabella DATE: 04/06/17 DATE OF ADMISSION: 04/05/2017 CHIEF COMPLAINT: Pain in wound. HISTORY OF PRESENT ILLNESS: The patient is a 46-year-old female with past medical history of MS; COPD; suprapubic catheter with neurogenic bladder in addition to frequent UTIs, followed by Dr. Garcia; pilonidal cyst with subsequent deep tissue wound requiring wound care and surgical intervention by Dr. Duckworth; additionally situs inversus, who presents after having continuous pain at her buttock region at the site of pilonidal cyst, has been constant, severe, not resolved by p.o. pain medications, burning sensation without radiation. Did not quite appreciated fevers, but upon arrival, was noted to have fevers and decreased p.o. intake, but no nausea or vomiting. No shortness of breath, but has minimal activity. No diarrhea and has been in the process of getting her suprapubic catheter transitioned by Dr. Garcia for closure. For pain on her bottom, the patient reports that pain symptoms are worsened with movement, but no relieving symptoms. Symptoms are still currently present. REVIEW OF SYSTEMS: For additional 10-point review of systems, negative for that noted in HPI. PAST MEDICAL HISTORY: Multiple sclerosis, seen by Dr. Lund; neurogenic bladder with chronic suprapubic Benitez; COPD, ex-smoker; situs inversus, possible chronic aspiration; questionable asthma; COPD; GERD; and pilonidal cyst, planned surgical intervention by Dr. Duckworth. SOCIAL HISTORY: No smoking, alcohol, or illicits. FAMILY HISTORY: Coronary artery disease and diabetes. ALLERGIES: FLAGYL, PENICILLINS, NITROIMIDAZOLES, GABAPENTIN, LEVAQUIN, NORFLOXACIN. HOME MEDICATIONS: Parafon, dantrolene, Colace, vitamin D, ferrous sulfate, Lasix, Claritin, Cellcept, oxybutynin, Percocet, Protonix, K-Tab, pravastatin, Lyrica, Zantac, Zoloft, Valtrex, and Ambien. SURGICAL HISTORY: Suprapubic catheter, excision of pilonidal cyst with extensive sinus track cyst formation along with partial closure of the defect and wound VAC placement. PHYSICAL EXAMINATION: VITAL SIGNS: Blood pressure 107/71, temperature 101, pulse 104, respirations 20, O2 saturations 97% on room air. GENERAL: Well developed, well nourished. At rest, no acute distress, but with minimal motion notable for significant pain. EYES: No scleral icterus. EOMI. ENT: Nares patent. Tongue midline. RESPIRATORY: Clear to auscultation. No wheezes or rales. History And Physical [address] [address] NAME: ALONZO HAMILTON : 66 STATUS : ADM IN [facility]#: [id number] AGE: 46 ADM/REG DATE : 04/05/17 MR#: [id number] REPORT SERV DATE: 04/06/17 DICTATED BY: NIMCO REBOLLAR DATE: 04/06/17 REPORT STATUS : Draft TRANSCRIBED BY: PARRIS DATE: 04/06/17 CV: Tachycardic. No rubs. Cap refill less than 2 seconds. GI: Soft, nontender, nondistended. Bowel sounds positive. : Pilonidal cyst tract evaluated with nurse and family at bedside with deep tracking bone noted at base, but with good healing granulomatous tissues. Serous formation at bone site with minimal draining. Old surgical site noted on suprapubic area with catheter placement. MUSCULOSKELETAL: Does move extremities. Able to turn self. SKIN: Warm and dry. Large wound evaluated with good healing granulomatous tissue. LYMPH: No cervical or supraclavicular lymphadenopathy. HEME: No bleeding or bruising. NEURO: Alert and oriented. Does have slight weakness in the extremities. PSYCH: Appropriate mood and affect. LABORATORY DATA: EKG 96, QTc 467. Lactate 0.9. CMP, procalcitonin 0.13. Sodium 139, potassium 3.7, chloride 104, bicarb 26, BUN and creatinine 6 and 0.51, glucose 94, calcium 8.6, albumin 2.0, globulin 4.5, alkaline phosphatase 218, AST and ALT 41 and 33. Urinalysis, moderate leukocyte esterase and nitrites. CBC; WBC 7.4, H and H 8.4 and 38.2, platelets 270. Chest x-ray still pending. ASSESSMENT AND PLAN: 1. Systemic inflammatory response syndrome. 2. Pilonidal cyst. 3. Suprapubic catheter with urinary tract infection history and neurogenic bladder. 4. Multiple sclerosis. 5. Anemia. 6. Reflux. 7. Chronic obstructive pulmonary disease/asthma history. 8. Situs inversus. 9. Worsening pain. 10.Progressive weakness. PLAN: 1. For SIRS with fever and tachycardia, no leukocytosis, the patient may have source of UTI with suprapubic catheter, although this may also be colonization versus pilonidal cyst. There does have good healing tissue. We will ask Dr. Duckworth, Wound Care, to evaluate and ID to help, as the patient does have multiple allergies to medications. We would like to minimize risk of selective isolation of resistance to antibiotics. However, in the presence of SIRS symptoms and multiple sources, we will have vancomycin and aztreonam until evaluated by Infectious Disease. Lactate currently low. Additional cause for SIRS symptoms are the patient's multiple medications as additional cause. 2. Pilonidal cyst, sees Dr. Duckworth. Wound has evaluated. We will additionally like to have Wound Care evaluate for possible source and edge further education to family for caring of wound. 3. Suprapubic catheter with UTI. Does have neurogenic bladder. Is under the care of Dr. Garcia. 4. MS. Does have mild progressive weakness. We will have PT/OT. Does not appear to be acute flare, but maybe could have early signs of decompensation with SIRS symptoms. History And Physical [address] [address] NAME: ALONZO HAMILTON : 66 STATUS : ADM IN PAT#: [id number] AGE: 46 ADM/REG DATE : 04/05/17 MR#: [id number] REPORT SERV DATE: 04/06/17 DICTATED BY: NIMCO REBOLLAR DATE: 04/06/17 REPORT STATUS : Draft TRANSCRIBED BY: MODIsabella DATE: 04/06/17 5. Anemia, monitor. 6. Reflux, on medications. 7. COPD/asthma. O2, DuoNebs as needed. 8. Situs inversus seen on prior imaging. 9. Worsening pain. IV and p.o. pain medication schedule to attempt to control wound care pain. All questions answered with the patient and family at bedside. DDN/MODL Nimco Rebollar MD / [id number] CC: MD Jeff Hector M.D.
--- NOTE | ~2017-04-05 | OP ---
Record Of Operation [facility] [address] [place]. [address] NAME: ALONZO HAMILTON : 66 STATUS : ADM IN PAT#: [id number] AGE: 46 ADM/REG DATE : 04/05/17 MR#: [id number] REPORT SERV DATE: 04/08/17 DICTATED BY: CINDY BURGESS JR. DATE: 04/08/17 REPORT STATUS : Draft TRANSCRIBED BY: PARRIS DATE: 04/08/17 DATE OF PROCEDURE: 04/08/2017 SURGEON: Cindy Burgess M.D. PROCEDURE: Excisional debridement of skin, subcutaneous tissue, muscle, fascia, and bone, sacral ulcer. PREOPERATIVE DIAGNOSIS: Sacral ulcer. POSTOPERATIVE DIAGNOSIS: Sacral ulcer. ANESTHESIA: Local. INDICATIONS: The patient has a sacral ulcer. She has been treated with outpatient debridements. She has been admitted for sepsis. She has been on IV antibiotics. She does have some persistent nonviable tissue in the base of the wound and also has an MRI which suggests some osteomyelitis at the base of the sacrum. Excisional debridement is indicated. DESCRIPTION OF PROCEDURE: The area was cleansed with saline and was injected with 1% lidocaine with a 10/15 blade and also with scissors and with a rongeur. Nonviable tissues excised down to including portions of the sacral bone. Bony tissue was submitted for cultures. The wound was then irrigated with saline and the wound was then packed with Dakin soaked gauze. She tolerated it well. The wound was 16.5 x 5.2 x 5.5 with a 4.5 cm undermining 1 to 3. This was increased from 16 x 5 x 5. The bony debridement was carried out over 20% of the wound bed. The bleeding was stopped with pressure. ESTIMATED BLOOD LOSS: Was 10 mL. DREW/PARRIS Cindy Burgess Jr., M.D. / [id number] CC: MD Jeff Hector M.D.
[2017-04-05 15:15] LABS: BASOPHILS 0.1 %; BASOPHILS ABSOLUTE 0.01 10/3/uL (0.0-0.16); EOSINOPHILS 0.8 %; EOSINOPHILS ABSOLUTE 0.06 10/3/uL (0.0-0.53); HEMOGLOBIN 8.4 g/dL (12.0-16.0); IMMATURE GRANULOCYTES 0.8 %; IMMATURE GRANULOCYTES ABSOLUTE 0.06 10/3/uL (0.0-0.11); LYMPHOCYTES 12.3 %; LYMPHOCYTES ABSOLUTE 0.91 10/3/uL (0.67-4.30); MEAN CORPUSCULAR HEMOGLOB 24.7 pg (26.0-34.0); MEAN CORPUSCULAR VOLUME 82.9 fL (80-100); MEAN PLATELET VOLUME 10.3 fL (9.2-13.0); MONOCYTES 6.5 %; MONOCYTES ABSOLUTE 0.48 10/3/uL (0.21-1.20); NEUTROPHILS 79.5 %; NEUTROPHILS ABSOLUTE 5.87 10/3/uL (2.02-8.40); PLATELET COUNT 270 10/3/uL (150-400); RBC DISTRIBUTION WIDTH 17.2 % (12.0-16.0); WHITE BLOOD CELLS 7.4 10/3/uL (4.5-10.5)
[2017-04-05 15:20] LABS: HEMATOCRIT 28.2 % (36.0-48.0); MANUAL DIFF NO %; MEAN CORPUS HGB CONC 29.8 g/dL (32.0-36.0)
[2017-04-05 15:21] LABS: ASCORBIC ACID (UR NOT ORDER) NEG (NEG); BILIRUBIN, URINE NEGATIVE (NEG); ER URINALYSIS TAT 0 Hrs 10 Mins; KETONE, URINE NEGATIVE (NEG); LEUKOCYTE ESTERASE(NOT OR MOD (NEG); NITRITE (URINE) POS (NEG); WBC (NOT ORDERED) (RFLEX) 35 (0-5)
[2017-04-05 15:32] LABS: BUN (BLOOD UREA NITROGEN) 6 MG/DL (6-23); CALCIUM, SERUM 8.6 MG/DL (8.5-10.4); CHLORIDE, SERUM 104 MMOL/L (96-112); CO2 (CARBON DIOXIDE) 26 MMOL/L (24-34); CREATININE 0.51 MG/DL (0.55-1.02); GFR AFRICAN AMERICAN 132 ML/MIN (>=60); GFR NON AFRICAN AMERICAN 114 ML/MIN (>=60); GLUCOSE, SERUM 94 MG/DL (60-99); SGPT(ALT) 33 U/L (5-65); SODIUM, SERUM 139 MMOL/L (135-148); TOTAL BILIRUBIN 0.7 MG/DL (0-1.2); TOTAL PROTEIN 6.5 G/DL (6.0-8.5)
[2017-04-05 15:35] LABS: A/G RATIO 0.4 (0.7-1.9); ALKALINE PHOSPHATASE 218 U/L (45-117); GLOBULIN 4.5 G/DL (2.5-4.1); POTASSIUM, SERUM 3.7 MMOL/L (3.5-5.3); SGOT(AST) 41 U/L (5-40)
[2017-04-05] MEDS ORDERED: PCET PO (17:17)
[2017-04-05] MEDS ORDERED: PARAFON FORTE500 MG PO (17:18)
[2017-04-05] MEDS ORDERED: CLARIT10 PO (17:19)
[2017-04-05] MEDS ORDERED: FERROUS SULF325 M1 PO (17:19)
[2017-04-05] MEDS ORDERED: DANTROLENE PO (17:19)
[2017-04-05] MEDS ORDERED: DSS PO (17:19)
[2017-04-05] MEDS ORDERED: VALTREX5 PO (17:20)
[2017-04-05] MEDS ORDERED: LYRICA225 MG PO (17:20)
[2017-04-05] MEDS ORDERED: PRAVAC PO (17:20)
[2017-04-05] MEDS ORDERED: ZANTAC300 MG PO (17:20)
[2017-04-05] MEDS ORDERED: CELLCEPT5 PO (17:20)
[2017-04-05] MEDS ORDERED: L20 PO (17:21)
[2017-04-05] MEDS ORDERED: PROTONIX PO (17:21)
[2017-04-05] MEDS ORDERED: VITD PO (17:21)
[2017-04-05] MEDS ORDERED: AMB10 PO (17:21)
[2017-04-05] MEDS ORDERED: K-TABS10 MEQ PO (17:22)
[2017-04-05] MEDS ORDERED: DITRO5 PO (17:22)
[2017-04-05] MEDS ORDERED: ZOL100 PO (17:22)
[2017-04-05 21:56] LABS: PROCALCITONIN 0.13 ng/mL (<0.5)
[2017-04-06 07:04] LABS: BASOPHILS 0.2 %; BASOPHILS ABSOLUTE 0.01 10/3/uL (0.0-0.16); EOSINOPHILS 1.7 %; EOSINOPHILS ABSOLUTE 0.11 10/3/uL (0.0-0.53); HEMATOCRIT 23.9 % (36.0-48.0); HEMOGLOBIN 7.2 g/dL (12.0-16.0); IMMATURE GRANULOCYTES 1.4 %; IMMATURE GRANULOCYTES ABSOLUTE 0.09 10/3/uL (0.0-0.11); LYMPHOCYTES 10.9 %; LYMPHOCYTES ABSOLUTE 0.71 10/3/uL (0.67-4.30); MANUAL DIFF NO %; MEAN CORPUS HGB CONC 30.1 g/dL (32.0-36.0); MEAN CORPUSCULAR HEMOGLOB 24.6 pg (26.0-34.0); MEAN CORPUSCULAR VOLUME 81.6 fL (80-100); MEAN PLATELET VOLUME 8.6 fL (9.2-13.0); MONOCYTES 5.4 %; MONOCYTES ABSOLUTE 0.35 10/3/uL (0.21-1.20); NEUTROPHILS 80.4 %; NEUTROPHILS ABSOLUTE 5.23 10/3/uL (2.02-8.40); PLATELET COUNT 267 10/3/uL (150-400); RBC DISTRIBUTION WIDTH 17.2 % (12.0-16.0); RED CELL COUNT 2.93 10/6/uL (4.0-5.6); WHITE BLOOD CELLS 6.5 10/3/uL (4.5-10.5)
[2017-04-06 07:23] LABS: A/G RATIO 0.5 (0.7-1.9); ALBUMIN 1.8 G/DL (3.5-5.0); BUN (BLOOD UREA NITROGEN) 6 MG/DL (6-23); CALCIUM, SERUM 8.2 MG/DL (8.5-10.4); CHLORIDE, SERUM 106 MMOL/L (96-112); CO2 (CARBON DIOXIDE) 28 MMOL/L (24-34); CREATININE 0.39 MG/DL (0.55-1.02); GFR AFRICAN AMERICAN 144 ML/MIN (>=60); GFR NON AFRICAN AMERICAN 124 ML/MIN (>=60); GLUCOSE, SERUM 108 MG/DL (60-99); POTASSIUM, SERUM 3.2 MMOL/L (3.5-5.3); SGOT(AST) 18 U/L (5-40); SGPT(ALT) 23 U/L (5-65); SODIUM, SERUM 140 MMOL/L (135-148); TOTAL BILIRUBIN 0.3 MG/DL (0-1.2); TOTAL PROTEIN 5.8 G/DL (6.0-8.5)
[2017-04-06 07:25] LABS: ALKALINE PHOSPHATASE 185 U/L (45-117)
[2017-04-07 10:41] LABS: ALBUMIN 1.9 G/DL (3.5-5.0); FREE T4 1.21 NG/DL (0.76-1.46); TOTAL BILIRUBIN 0.2 MG/DL (0-1.2); TOTAL PROTEIN 6.2 G/DL (6.0-8.5)
[2017-04-07 10:42] LABS: DIRECT BILIRUBIN 0.1 MG/DL (0.0-0.4); FOLATE 10.7 NG/ML (>5.2); INDIRECT BILIRUBIN(NOT ORDER) 0.1 MG/DL (0.1-0.9); ULTRASENSITIVE TSH 0.49 MCIU/ML (0.358-3.740)
[2017-04-10 06:33] LABS: MEAN CORPUS HGB CONC 30.5 g/dL (32.0-36.0); MEAN CORPUSCULAR HEMOGLOB 25.2 pg (26.0-34.0); MEAN CORPUSCULAR VOLUME 82.6 fL (80-100); MEAN PLATELET VOLUME 9.3 fL (9.2-13.0); PLATELET COUNT 302 10/3/uL (150-400); RBC DISTRIBUTION WIDTH 17.4 % (12.0-16.0); RED CELL COUNT 3.45 10/6/uL (4.0-5.6); WHITE BLOOD CELLS 5.6 10/3/uL (4.5-10.5)
[2017-04-10 06:35] LABS: HEMATOCRIT 28.5 % (36.0-48.0); HEMOGLOBIN 8.7 g/dL (12.0-16.0); MANUAL DIFF YES %
[2017-04-10 06:43] LABS: BUN (BLOOD UREA NITROGEN) 8 MG/DL (6-23); CALCIUM, SERUM 8.1 MG/DL (8.5-10.4); CHLORIDE, SERUM 108 MMOL/L (96-112); CO2 (CARBON DIOXIDE) 25 MMOL/L (24-34); CREATININE 0.32 MG/DL (0.55-1.02); GFR AFRICAN AMERICAN 154 ML/MIN (>=60); GFR NON AFRICAN AMERICAN 133 ML/MIN (>=60); POTASSIUM, SERUM 3.1 MMOL/L (3.5-5.3); SODIUM, SERUM 143 MMOL/L (135-148)
[2017-04-10 06:44] LABS: GLUCOSE, SERUM 86 MG/DL (60-99)
[2017-04-10 08:07] LABS: SEGMENTED NEUTROPHIL (0) 54 %; TOTAL NUCLEATED CELLS 100
[2017-04-10 08:08] LABS: ANISOCYTOSIS 1+ (5-10/OIF) (0-5/OIF); BAND NEUTROPHILS 8 %; EOSINOPHILS 1 %; EOSINOPHILS ABSOLUTE (CALC) 0.06 10/3/uL (0.0-0.53); IMMATURE GRANS ABSOLUTE (CALC) 0.22 10/3/uL (0.0-0.11); LYMPHOCYTES 26 %; LYMPHOCYTES ABSOLUTE (CALC) 1.46 10/3/uL (0.67-4.30); METAMYELOCYTES 3 %; MICROCYTES 1+ (5-10/OIF) (0-5/OIF); MONOCYTES 7 %; MONOCYTES ABSOLUTE (CALC) 0.39 10/3/uL (0.21-1.20); MYELOCYTES 1 %; NEUTROPHILS ABSOLUTE (CALC) 3.47 10/3/uL (2.02-8.40); NUCLEATED RED BLOOD CELLS 2 /100WBC (0); PLATELET ESTIMATE ADQ (ADEQUATE)
[2017-04-10 08:09] LABS: POLYCHROMASIA 1+ (2-5/OIF) (0-1/OIF)
[2017-04-12 06:47] LABS: BASOPHILS 0.2 %; BASOPHILS ABSOLUTE 0.01 10/3/uL (0.0-0.16); EOSINOPHILS 0.7 %; EOSINOPHILS ABSOLUTE 0.04 10/3/uL (0.0-0.53); HEMATOCRIT 27.6 % (36.0-48.0); HEMOGLOBIN 8.2 g/dL (12.0-16.0); IMMATURE GRANULOCYTES 4.4 %; IMMATURE GRANULOCYTES ABSOLUTE 0.25 10/3/uL (0.0-0.11); LYMPHOCYTES 17.9 %; LYMPHOCYTES ABSOLUTE 1.01 10/3/uL (0.67-4.30); MANUAL DIFF NO %; MEAN CORPUS HGB CONC 29.7 g/dL (32.0-36.0); MEAN CORPUSCULAR HEMOGLOB 24.8 pg (26.0-34.0); MEAN CORPUSCULAR VOLUME 83.6 fL (80-100); MEAN PLATELET VOLUME 9.4 fL (9.2-13.0); MONOCYTES 4.8 %; MONOCYTES ABSOLUTE 0.27 10/3/uL (0.21-1.20); NEUTROPHILS ABSOLUTE 4.06 10/3/uL (2.02-8.40); PLATELET COUNT 252 10/3/uL (150-400); RBC DISTRIBUTION WIDTH 18.9 % (12.0-16.0); WHITE BLOOD CELLS 5.6 10/3/uL (4.5-10.5)
[2017-04-12 06:59] LABS: BUN (BLOOD UREA NITROGEN) 6 MG/DL (6-23); CALCIUM, SERUM 8.1 MG/DL (8.5-10.4); CHLORIDE, SERUM 109 MMOL/L (96-112); CO2 (CARBON DIOXIDE) 26 MMOL/L (24-34); CREATININE 0.32 MG/DL (0.55-1.02); GFR AFRICAN AMERICAN 153 ML/MIN (>=60); GFR NON AFRICAN AMERICAN 132 ML/MIN (>=60); GLUCOSE, SERUM 92 MG/DL (60-99); POTASSIUM, SERUM 3.4 MMOL/L (3.5-5.3); SODIUM, SERUM 142 MMOL/L (135-148)
[2017-06-29] MEDS ORDERED: OXYCON20 PO (13:36)
[2017-06-29] MEDS ORDERED: MIRALAX POWDER1 PKT PO (13:37)
[2017-06-29] MEDS ORDERED: DITRO5 PO (13:38)
[2017-06-29] MEDS ORDERED: METHOC500B PO (13:39)
[2017-06-29] MEDS ORDERED: LYRICA225 MG PO (13:41)
[2017-06-29] MEDS ORDERED: LIPITOR10 PO (13:44)
[2017-06-29] MEDS ORDERED: MULTIVITAMI1 PO (13:47)
[2017-06-29] MEDS ORDERED: MELATONIN5 M1 PO (13:49)
[2017-06-29] MEDS ORDERED: ZYRTEC ALLGY10 MG PO (13:50)
[2017-06-29] MEDS ORDERED: BIST PO (13:53)
[2017-06-29] MEDS ORDERED: PERCOCET 10/3251 TAB PO (13:55)
[2017-06-29] MEDS ORDERED: PROSTAT AWC PO (14:36)
== END 2017-04-12 18:36 | disposition left against medical advice (07) | DRG 516 ==
LOC: ER 16:33 → 5SO 19:38
PROVIDERS: Internal Medicine; Nurse Practitioner; Physician Assistant; Student in an Organized Health Care Education/Training Program
PROC: 0QB10ZZ Excision of Sacrum, Open Approach (ICD-10-PCS; principal; 2017-04-08)
DX: M46.28 Osteomyelitis of vertebra, sacral and sacrococcygeal region (principal); T83.518A Infection and inflammatory reaction due to other urinary catheter, initial encounter; Q89.3 Situs inversus; Z99.81 Dependence on supplemental oxygen; Z68.41 Body mass index [BMI] 40.0-44.9, adult; D62 Acute posthemorrhagic anemia; N39.0 Urinary tract infection, site not specified; E66.01 Morbid (severe) obesity due to excess calories; G35 Multiple sclerosis; J44.9 Chronic obstructive pulmonary disease, unspecified; L05.91 Pilonidal cyst without abscess; K21.9 Gastro-esophageal reflux disease without esophagitis; D64.9 Anemia, unspecified; N31.9 Neuromuscular dysfunction of bladder, unspecified; F32.9 Major depressive disorder, single episode, unspecified; F41.9 Anxiety disorder, unspecified; Z82.49 Family history of ischemic heart disease and other diseases of the circulatory system; B96.4 Proteus (mirabilis) (morganii) as the cause of diseases classified elsewhere; B95.5 Unspecified streptococcus as the cause of diseases classified elsewhere; Z88.0 Allergy status to penicillin; Z83.3 Family history of diabetes mellitus; Z79.899 Other long term (current) drug therapy
CPT/HCPCS: 70551; 70552; 71010; 72156; 72195; 80048; 80053; 80076; 81001; 82140; 82306; 82533; 82607; 82746; 83605; 83735; 84145; 84439; 84443; 85025; 87015; 87040; 87070; 87075; 87077; 87086; 87102; 87116; 87186; 87205; 93005; 95018; 96365; 96375; 97110-GO; 97116-GP; 97161-GP; 97166-GO; 97530-GO; 97530-GP; 99285; A9270-GY; A9577; G8978-CK-GP; G8979-CJ-GP; G8987-CK-GO; G8988-CK-GO; G8989-CK-GO; J1170; J2540; J3370